=== PATIENT | male | born 1995 | race Caucasian/White ===

== ENCOUNTER 2019-04-05 13:27 | Emergency (ER) | payer OTHER ==
[~2019-04-05] VITALS: Ht 162.6 cm; Wt 95.2 kg
[~2019-04-05 13:27] MED LIST: ALBU90OI INH; DIPATR PO; Duoneb 2.5-0.5 M3 ML INH; ESCI10 PO; PROCODE120 PO; Prednisone20 MG PO; Zithromax250 MG PO; Zofran Odt4 MG SL
[2019-04-05 14:02] LABS: BASOPHILS ABSOLUTE AUTO 0.07 K/mm3 (0.00-0.23); BASOPHILS PERCENT AUTO 1 % (0-2); EOSINOPHILS ABSOLUTE AUTO 0.27 K/mm3 (0.00-0.68); EOSINOPHILS PERCENT AUTO 2 % (0-6); Hemoglobin 17.9 g/dL (13.5-17.5); IMMATURE GRAN ABSOLUTE AUTO 0.05 K/mm3 (0.00-0.10); IMMATURE GRAN PERCENT AUTO 0 % (0-1); LYMPHOCYTES ABSOLUTE AUTO 2.31 K/mm3 (0.84-5.20); LYMPHOCYTES PERCENT AUTO 21 % (21-46); MONOCYTES ABSOLUTE AUTO 0.62 K/mm3 (0.16-1.47); MONOCYTES PERCENT AUTO 6 % (4-13); Mean Corpuscular HGB 30.3 pg (26.0-34.0); Mean Corpuscular HGB Conc 35.1 g/dL (31.5-36.5); Mean Corpuscular Volume 86 fL (80-100); Mean Platelet Volume 9.8 fL (9.1-12.4); NEUTROPHILS ABSOLUTE AUTO 7.89 K/mm3 (1.96-9.15); NEUTROPHILS PERCENT AUTO 71 % (41-73); Platelet Count 299 K/mm3 (150-400); RDW Coefficient Variation 12.7 % (11.7-14.2); RDW Standard Deviation 39.7 fL (35.1-46.3); Red Blood Cell Count 5.91 M/mm3 (4.30-5.90); White Blood Cell Count 11.21 K/mm3 (4.00-11.30)
[2019-04-05 14:40] LABS: Alanine Aminotransfer (ALT/SGP 50 U/L (12-78); Albumin, Blood 4.4 g/dL (3.4-5.0); Alk Phos 93 U/L (50-136); Anion Gap 6 mmol/L (6-16); Aspartate Aminotrans (AST/SGOT 19 U/L (12-37); Bilirubin, Total 0.7 mg/dL (0.1-1.0); Blood Urea Nitrogen 8 mg/dL (8-24); Bun/Creatinine Ratio 7.4 (12.0-20.0); CO2, Blood 28 mmol/L (21-32); Calcium, Blood 9.2 mg/dL (8.5-10.1); Chloride, Blood 106 mmol/L (98-108); Creatinine, Blood 1.08 mg/dL (0.60-1.20); Globulin, Blood 4.2 g/dL (2.2-4.0); Glomerular Filtration Rate >60 (60-); Glucose, Blood 88 mg/dL (70-99); Potassium, Blood 3.6 mmol/L (3.5-5.5); Sodium, Blood 140 mmol/L (136-145); Total Protein, Blood 8.6 g/dL (6.4-8.2)
[2019-04-05 15:11] LABS: Source, Urine Clean Catch
[2019-04-05 15:18] LABS: Bilirubin, Urine Neg (Neg); Blood, Urine 5+ (Neg); Glucose Qualitative, Urine Neg (Neg); Ketones, Urine Neg (Neg); Leukocyte Esterase, Urine 1+ (Neg); Nitrite, Urine Neg (Neg); Protein, Urine 2+ (Neg); Urobilinogen, Urine NORM (Normal)
[2019-04-05 15:45] LABS: Appearance, Urine Hazy (Clear); Color, Urine Yellow (P-Yellow)
[2019-04-05] MEDS ORDERED: HYDR1TAB94 PO (15:47)
[2019-04-05 15:48] LABS: Red Blood Cells, Urine 50-100 /hpf (0-2)
[2019-04-05 15:49] LABS: Bacteria Mod /hpf; Mucus Light (0-Heavy); Squamous Epithelial Cells Rare /hpf (Few)
== END 2019-04-05 15:53 | disposition home or self-care (01) ==
LOC: ER 13:27
PROVIDERS: Emergency Medicine; Physician Assistant
DX: N23 Unspecified renal colic (principal); J45.909 Unspecified asthma, uncomplicated; F17.200 Nicotine dependence, unspecified, uncomplicated
CPT/HCPCS: 36415; 76705; 80053; 81001; 83690; 85025; 87086; 99284-25

== ENCOUNTER 2019-11-23 19:31 | Emergency (ER) | payer OTHER ==
[~2019-11-23] VITALS: Ht 162.6 cm; Wt 113.4 kg
[~2019-11-23 19:31] MED LIST changes: +HYDR1TAB94 PO
[2019-11-23 19:55] LABS: BASOPHILS ABSOLUTE AUTO 0.07 K/mm3 (0.00-0.23); BASOPHILS PERCENT AUTO 1 % (0-2); EOSINOPHILS ABSOLUTE AUTO 0.11 K/mm3 (0.00-0.68); EOSINOPHILS PERCENT AUTO 1 % (0-6); Hematocrit 49.7 % (37.0-53.0); Hemoglobin 18.1 g/dL (13.5-17.5); IMMATURE GRAN ABSOLUTE AUTO 0.03 K/mm3 (0.00-0.10); IMMATURE GRAN PERCENT AUTO 0 % (0-1); LYMPHOCYTES ABSOLUTE AUTO 2.09 K/mm3 (0.84-5.20); LYMPHOCYTES PERCENT AUTO 19 % (21-46); MONOCYTES ABSOLUTE AUTO 0.55 K/mm3 (0.16-1.47); MONOCYTES PERCENT AUTO 5 % (4-13); Mean Corpuscular HGB 30.7 pg (26.0-34.0); Mean Corpuscular HGB Conc 36.4 g/dL (31.5-36.5); Mean Corpuscular Volume 84 fL (80-100); Mean Platelet Volume 9.5 fL (9.1-12.4); NEUTROPHILS ABSOLUTE AUTO 8.13 K/mm3 (1.96-9.15); NEUTROPHILS PERCENT AUTO 74 % (41-73); Platelet Count 317 K/mm3 (150-400); RDW Coefficient Variation 11.8 % (11.7-14.2); RDW Standard Deviation 35.8 fL (35.1-46.3); White Blood Cell Count 10.98 K/mm3 (4.00-11.30)
[2019-11-23 20:12] LABS: Alanine Aminotransfer (ALT/SGP 61 U/L (12-78); Albumin, Blood 4.4 g/dL (3.4-5.0); Albumin/Globulin Ratio 1.1 (0.8-1.8); Alk Phos 82 U/L (50-136); Anion Gap 8 mmol/L (6-16); Aspartate Aminotrans (AST/SGOT 28 U/L (12-37); Bilirubin, Total 0.6 mg/dL (0.1-1.0); Blood Urea Nitrogen 10 mg/dL (8-24); Bun/Creatinine Ratio 9.5 (12.0-20.0); CO2, Blood 25 mmol/L (21-32); Calcium, Blood 8.5 mg/dL (8.5-10.1); Chloride, Blood 103 mmol/L (98-108); Creatinine, Blood 1.05 mg/dL (0.60-1.20); Glomerular Filtration Rate >60 (60-); Glucose, Blood 79 mg/dL (70-99); Potassium, Blood 3.2 mmol/L (3.5-5.5); Sodium, Blood 136 mmol/L (136-145); Total Protein, Blood 8.4 g/dL (6.4-8.2)
[2019-11-23] MEDS ORDERED: HYDCOR2.5C PR (20:46)
[2019-11-23] MEDS ORDERED: Prednisone20 MG PO (20:46)
== END 2019-11-23 20:58 | disposition home or self-care (01) ==
LOC: ER 19:31
PROVIDERS: Physician Assistant
DX: J45.901 Unspecified asthma with (acute) exacerbation (principal); K60.2 Anal fissure, unspecified; F17.210 Nicotine dependence, cigarettes, uncomplicated
CPT/HCPCS: 36415; 80053; 82272; 85025; 86850; 86900; 86901; 94644; 99283-25; J7512

== ENCOUNTER 2020-03-01 03:04 | Emergency (ER) | payer OTHER ==
[~2020-03-01] VITALS: Ht 162.6 cm; Wt 95.2 kg
[~2020-03-01 03:04] MED LIST changes: +HYDCOR2.5C PR
[2020-03-01] MEDS ORDERED: Veetids 500500 MG PO (03:25)
[2020-03-01] MEDS ORDERED: IBUP800 PO (03:25)
== END 2020-03-01 03:58 | disposition home or self-care (01) ==
LOC: ER 03:04
DX: K04.7 Periapical abscess without sinus (principal); J45.909 Unspecified asthma, uncomplicated; F17.200 Nicotine dependence, unspecified, uncomplicated
CPT/HCPCS: 99282; A9270-GY

== ENCOUNTER 2020-09-24 07:22 | Emergency (ER) | payer OTHER ==
[~2020-09-24] VITALS: Ht 162.6 cm; Wt 97.5 kg
[~2020-09-24 07:22] MED LIST changes: +ACETAMINOPHEN500 MG PO; +IBUP600 PO; +IBUP800 PO; +Veetids 500500 MG PO
[2020-09-24] MEDS ORDERED: [UNRECOGNIZED DRUG - OTHER] PO (09:31)
== END 2020-09-24 10:02 | disposition home or self-care (01) ==
LOC: ER 07:22
DX: R51.9 Headache, unspecified (principal); I10 Essential (primary) hypertension; F17.210 Nicotine dependence, cigarettes, uncomplicated
CPT/HCPCS: 70450; 96374; 96375; 99284-25; J1170; J2765

== ENCOUNTER → 2021-06-30 | Outpatient (CLI) | payer OTHER ==
[~2021-06-30] MED LIST changes: +[UNRECOGNIZED DRUG - OTHER] PO
[2021-06-30 16:14] LABS: BASOPHILS ABSOLUTE AUTO 0.05 K/mm3 (0.00-0.23); BASOPHILS PERCENT AUTO 1 % (0-2); EOSINOPHILS PERCENT AUTO 1 % (0-6); Hematocrit 47.7 % (37.0-53.0); Hemoglobin 17.7 g/dL (13.5-17.5); IMMATURE GRAN ABSOLUTE AUTO 0.03 K/mm3 (0.00-0.10); IMMATURE GRAN PERCENT AUTO 0 % (0-1); LYMPHOCYTES ABSOLUTE AUTO 1.29 K/mm3 (0.84-5.20); LYMPHOCYTES PERCENT AUTO 17 % (21-46); MONOCYTES ABSOLUTE AUTO 0.33 K/mm3 (0.16-1.47); MONOCYTES PERCENT AUTO 4 % (4-13); Mean Corpuscular HGB 31.1 pg (26.0-34.0); Mean Corpuscular HGB Conc 37.1 g/dL (31.5-36.5); Mean Corpuscular Volume 84 fL (80-100); Mean Platelet Volume 9.3 fL (9.1-12.4); NEUTROPHILS ABSOLUTE AUTO 5.89 K/mm3 (1.96-9.15); NEUTROPHILS PERCENT AUTO 77 % (41-73); Platelet Count 261 K/mm3 (150-400); RDW Coefficient Variation 12.6 % (11.7-14.2); RDW Standard Deviation 38.4 fL (35.1-46.3); White Blood Cell Count 7.69 K/mm3 (4.00-11.30)
[2021-06-30 16:37] LABS: Alanine Aminotransfer (ALT/SGP 52 U/L (12-78); Albumin, Blood 4.2 g/dL (3.4-5.0); Alk Phos 88 U/L (40-126); Anion Gap 7 mmol/L (6-16); Aspartate Aminotrans (AST/SGOT 15 U/L (12-37); Bilirubin, Total 0.5 mg/dL (0.1-1.0); Blood Urea Nitrogen 7 mg/dL (8-24); Bun/Creatinine Ratio 7.4 (12.0-20.0); CO2, Blood 28 mmol/L (21-32); Calcium, Blood 8.7 mg/dL (8.5-10.1); Chloride, Blood 103 mmol/L (98-108); Creatinine, Blood 0.95 mg/dL (0.60-1.20); Globulin, Blood 4.1 g/dL (2.2-4.0); Glomerular Filtration Rate >60 (60-); Glucose, Blood 88 mg/dL (70-99); Sodium, Blood 138 mmol/L (136-145); Thyroid Stimulating Hormone 3.406 uIU/mL (0.360-4.800); Total Protein, Blood 8.3 g/dL (6.4-8.2)
== END | disposition home or self-care (01) ==
LOC: LAB 16:09 → LAB SHORT 16:09
PROVIDERS: Physician Assistant
DX: R00.2 Palpitations (principal)
CPT/HCPCS: 80053; 84443; 85025